=== PATIENT | male | born 1935 ===

== ENCOUNTER 2020-01-01 19:24 | Emergency (ER) | payer MEDICARE, OTHER ==
--- NOTE | 2020-01-01 20:40 | RAD ---
XR Elbow Lt 4 View STANDARD INDICATION: Mechanical fall with left elbow pain FINDINGS: Bones: No acute fracture or subluxation is evident.. Joints: No joint capsular distention. Radiocapitellar alignment appears within normal limits. Soft tissues: There is soft tissue swelling overlying the posterior aspect of the left elbow joint. IMPRESSION: No acute osseous abnormality.
--- NOTE | 2020-01-01 20:49 | CT ---
CT Brain WO Con: 01/01/2020 8:01 PM CLINICAL HISTORY: Fall. IMAGING TECHNIQUE: Multiple CT images were obtained of the brain without IV contrast. COMPARISON: None. FINDINGS: BRAIN: Evidence of acute infarct: None. Evidence of chronic ischemic change:There is mild chronic small vessel white matter ischemic change. There is mild generalized cerebral and cerebellar atrophy. Evidence of intracranial hemorrhage: None. Evidence of midline shift: Third ventricle and septum pellucidum are midline. Ventricles: Normal. No hydrocephalus. SKULL: There is a right frontal scalp contusion. VISUALIZED PARANASAL SINUSES: Clear. MASTOID AIR CELLS: Clear. EXTRACRANIAL SOFT TISSUES: Right frontal scalp contusion. IMPRESSION: No acute intracranial abnormality.
--- NOTE | 2020-01-01 20:50 | CT ---
CT Cervical Spine WO Con Indication: Neck pain after fall COMPARISON: None. FINDINGS: Fracture: None. Spinal alignment: There is slight retrolisthesis of C5 on C6. There is slight anterolisthesis of C4 o n C5. This is likely degenerative in nature. Craniocervical junction: Within normal limits. Vertebral body heights: Maintained. Cervical spine degenerative change: Moderate multilevel cervical spondylosis Lung apices: Not seen IMPRESSION: No acute osseous abnormality.
[2020-01-01] MEDS ORDERED: Acetaminophen 500 MG TAB ONE (22:31)
[2020-01-01] MEDS ORDERED: Bacitracin 1 PK ONE (22:31)
== END 2020-01-01 22:36 | disposition home or self-care (01) ==
LOC: ERS 19:24
DX: S51.012A Laceration without foreign body of left elbow, initial encounter (principal); S00.81XA Abrasion of other part of head, initial encounter; F41.9 Anxiety disorder, unspecified; I10 Essential (primary) hypertension; W18.30XA Fall on same level, unspecified, initial encounter
CPT/HCPCS: 70450; 72125; 93005